=== PATIENT | male | born 1995 | race African-American/Black ===

== ENCOUNTER 2019-03-08 19:47 | Emergency (ER) | payer OTHER ==
[~2019-03-08] VITALS: Ht 180.3 cm; Wt 81.7 kg
[~2019-03-08 19:47] MED LIST: KEFLEX500 MG PO
[2019-03-08] MEDS ORDERED: [UNRECOGNIZED DRUG - OTHER] (20:12)
[2019-03-08 20:15] LABS: HEMATOCRIT 41.3 % (42.0-52.0); MCH 32.7 pg (26.0-34.0); MCHC 33.8 g/dL (28.0-37.0); MCV 96.6 fL (80.0-100.0); PLATELET COUNT 258 thou/uL (150-400); RBC 4.28 mil/uL (4.50-6.00); RDW 11.8 % (10.5-14.5)
[2019-03-08 20:23] LABS: CALCIUM 9.5 mg/dL (8.5-10.1); CREATININE 1.3 mg/dL (0.7-1.3); POTASSIUM 3.5 mmol/L (3.5-5.1)
[2019-03-08 20:36] LABS: URINE BILIRUBIN NEGATIVE (Negative); URINE BLOOD TRACE (Negative); URINE CLARITY CLEAR; URINE COLOR YELLOW; URINE GLUCOSE-RANDOM* NEGATIVE (Negative); URINE KETONES NEGATIVE (Negative); URINE LEUKOCYTES-REFLEX NEGATIVE (Negative); URINE NITRITE-REFLEX NEGATIVE (Negative); URINE PROTEIN (DIPSTICK) 1+ (Negative); URINE UROBILINOGEN 0.2 E.U./dl (0.2-1.0)
[2019-03-08 20:44] LABS: AMP/METHAMP Negative (Negative); BARBITURATES Negative (Negative); BENZODIAZEPINES Negative (Negative); COCAINE Negative (Negative); METHADONE Negative (Negative); OPIATES Negative (Negative); PCP Negative (Negative)
[2019-03-08 20:46] LABS: BACTERIA-REFLEX 1-9 Few /HPF (None Seen); MUCUS 0-3 Light strn/LPF (None Seen); SQUAMOUS 0-3 Few /LPF (0-3); URINE RBC 0-2 Rare /HPF (0-2); URINE WBC-REFLEX 0-5 Rare /HPF (0-5)
[2019-03-08 20:47] LABS: CELLULAR CASTS 0-3 Few /LPF (None Seen); CRYSTALS None Seen /LPF (None Seen); HYALINE CASTS >10 Many /LPF (None Seen)
[2019-03-08 20:56] LABS: ABSOLUTE NEUTROPHILS 5.1 thou/uL (1.4-8.2)
[2019-03-08 20:57] LABS: ANISOCYTOSIS 1+
[2019-03-08 21:09] VITALS: BP 139/88
== END 2019-03-08 21:07 | disposition home or self-care (01) ==
LOC: ER 19:47
PROVIDERS: Emergency Medicine
DX: F16.10 Hallucinogen abuse, uncomplicated (principal); R41.82 Altered mental status, unspecified; F17.210 Nicotine dependence, cigarettes, uncomplicated; M41.9 Scoliosis, unspecified; Q87.40 Marfan syndrome, unspecified; Z79.899 Other long term (current) drug therapy

== ENCOUNTER 2019-07-12 11:39 | Emergency (ER) | payer OTHER ==
[~2019-07-12] VITALS: Ht 180.3 cm; Wt 72.6 kg
[~2019-07-12 11:39] MED LIST changes: +[UNRECOGNIZED DRUG - OTHER]
[2019-07-12 12:32] VITALS: BP 137/93
== END 2019-07-12 12:32 | disposition home or self-care (01) ==
LOC: ER 11:39
DX: Z03.818 Encounter for observation for suspected exposure to other biological agents ruled out (principal); Z21 Asymptomatic human immunodeficiency virus [HIV] infection status; F17.210 Nicotine dependence, cigarettes, uncomplicated; Z79.899 Other long term (current) drug therapy

== ENCOUNTER 2019-11-08 13:08 | Emergency (ER) | payer OTHER ==
[~2019-11-08] VITALS: Ht 180.3 cm; Wt 81.7 kg
[2019-11-08 13:30] LABS: URINE BILIRUBIN NEGATIVE (Negative); URINE BLOOD NEGATIVE (Negative); URINE CLARITY CLEAR; URINE COLOR YELLOW; URINE GLUCOSE-RANDOM* NEGATIVE (Negative); URINE KETONES NEGATIVE (Negative); URINE LEUKOCYTES-REFLEX NEGATIVE (Negative); URINE NITRITE-REFLEX NEGATIVE (Negative); URINE PROTEIN (DIPSTICK) NEGATIVE (Negative); URINE UROBILINOGEN >= 8.0 E.U./dl (0.2-1.0)
[2019-11-08 16:27] VITALS: BP 112/88
[2019-11-10 04:06] LABS: SYPHILIS AB Reactive (Non Reactive)
== END 2019-11-08 16:28 | disposition home or self-care (01) ==
LOC: ER 13:08
PROVIDERS: Physician Assistant
DX: Z20.2 Contact with and (suspected) exposure to infections with a predominantly sexual mode of transmission (principal); L29.8 Other pruritus; B20 Human immunodeficiency virus [HIV] disease; F17.210 Nicotine dependence, cigarettes, uncomplicated; Z79.899 Other long term (current) drug therapy

== ENCOUNTER 2020-01-23 22:34 | Emergency (ER) | payer OTHER ==
[~2020-01-23] VITALS: Ht 180.3 cm; Wt 78.5 kg
[2020-01-23] MEDS ORDERED: DOVATO 50-3001 EACH PO (22:39)
[2020-01-24 00:01] LABS: HEMOGLOBIN 13.8 gm/dL (14.0-18.0); MCH 33.5 pg (26.0-34.0); MCHC 33.7 g/dL (28.0-37.0); MCV 99.4 fL (80.0-100.0); PLATELET COUNT 245 thou/uL (150-400); RBC 4.12 mil/uL (4.50-6.00); RDW 12.1 % (10.5-14.5); WBC 6.7 thou/uL (4.0-11.0)
[2020-01-24 00:06] LABS: CALCIUM 8.9 mg/dL (8.5-10.1); CREATININE 1.4 mg/dL (0.7-1.3); POTASSIUM 3.8 mmol/L (3.5-5.1)
[2020-01-24 00:10] LABS: ALBUMIN 4.4 g/dL (3.4-5.0); TOTAL PROTEIN 8.1 g/dL (6.4-8.2)
[2020-01-24 00:55] LABS: ABSOLUTE NEUTROPHILS 3.2 thou/uL (1.4-8.2); PLATELET ESTIMATE NORMAL
[2020-01-24 02:10] VITALS: BP 108/71
== END 2020-01-24 02:11 | disposition home or self-care (01) ==
LOC: ER 22:34
PROVIDERS: Emergency Medicine
DX: U07.1 COVID-19 (principal); J06.9 Acute upper respiratory infection, unspecified; B97.89 Other viral agents as the cause of diseases classified elsewhere; F17.210 Nicotine dependence, cigarettes, uncomplicated; Z79.899 Other long term (current) drug therapy; Z21 Asymptomatic human immunodeficiency virus [HIV] infection status